=== PATIENT | male | born 1960 | race Caucasian/White ===

== ENCOUNTER 2024-12-03 04:19 | Emergency (ER) | payer OTHER ==
[~2024-12-03] VITALS: Ht 177.8 cm; Wt 81.6 kg
[2024-12-03 04:25] VITALS: TEMP 97.8
[2024-12-03] MEDS ORDERED: KETOROLAC TROMETHAMINE 60 MG/2 ML VIAL ONE (04:47)
[2024-12-03] MEDS: CYCLOBENZAPRINE HCL 10 MG TAB PO ONE (04:52)
[2024-12-03] MEDS: KETOROLAC TROMETHAMINE 60 MG/2 ML VIAL IM ONE (04:53)
[2024-12-03 07:00] VITALS: PULSE 71; RESP 16; O2SAT 99
[2024-12-03] MEDS ORDERED: CYCLOBENZAPRINE5 MG PO (07:21)
[2024-12-03] MEDS ORDERED: KETOROLAC TROME10 MG PO (07:21)
== END 2024-12-03 07:36 | disposition home or self-care (01) ==
LOC: ER 04:24
DX: M54.50 Low back pain, unspecified (principal); X50.1XXA Overexertion from prolonged static or awkward postures, initial encounter; Y99.0 Civilian activity done for income or pay; I10 Essential (primary) hypertension; E11.9 Type 2 diabetes mellitus without complications; I50.9 Heart failure, unspecified; I48.91 Unspecified atrial fibrillation; E78.5 Hyperlipidemia, unspecified
CPT/HCPCS: 72131; 99284; J1885